=== PATIENT | female | born 1990 | race Caucasian/White ===

== ENCOUNTER 2017-07-19 11:31 | Emergency (ER) | payer MEDICAID ==
[~2017-07-19] VITALS: Ht 172.7 cm; Wt 104.5 kg
[~2017-07-19 11:31] MED LIST: ONDA4TAB6 PO
[2017-07-19 11:33] VITALS: BP 130/68
[2017-07-19] MEDS ORDERED: doxycycline hyclate 100mg tablet.DR PO SCH (12:35)
[2017-07-19] MEDS ORDERED: BUPIVAcaine/PF 2.5mg/ml (0.25%) 10ml vial IJ ONE (12:35)
[2017-07-19] MEDS ORDERED: TETanus/Pertussis (Acell)/Diphther VAC/PF (Tdap-Adult) 0.5ml syringe IM ONE (12:45)
== END 2017-07-19 12:51 | disposition home or self-care (01) ==
LOC: ER 11:32
DX: S30.861A Insect bite (nonvenomous) of abdominal wall, initial encounter (principal); F41.9 Anxiety disorder, unspecified; Z79.899 Other long term (current) drug therapy; W57.XXXA Bitten or stung by nonvenomous insect and other nonvenomous arthropods, initial encounter; Y93.89 Activity, other specified; Y92.89 Other specified places as the place of occurrence of the external cause; Y99.8 Other external cause status
CPT/HCPCS: 10120; 99284; J3490

== ENCOUNTER 2019-12-03 10:55 | Emergency (ER) | payer MEDICAID ==
[~2019-12-03] VITALS: Ht 175.3 cm; Wt 131.0 kg
[2019-12-03 12:24] LABS: URINE HCG POSITIVE (NEG)
[2019-12-03 12:27] LABS: CLARITY,URINE SLIGHTLY CLOUDY (Clear); COLOR,URINE YELLOW (Yellow); GLUCOSE, URINE NEGATIVE (Neg); KETONES,URINE NEGATIVE (Neg); LEUKOCYTE ESTERASE ,URINE NEGATIVE (Neg); NITRITES, URINE NEGATIVE (Neg); OCCULT BLOOD,URINE SMALL (Neg); PH,URINE 7.5 (4.8-8.0); PROTEIN,URINE NEGATIVE (Neg)
[2019-12-03 12:29] LABS: URINE AMPHETAMINE SCREEN NEGATIVE (Neg); URINE BARBITUATE SCREEN NEGATIVE (Neg); URINE BENZODIAZEPINES SCREEN POSITIVE (Neg); URINE CANNABINOID SCREEN POSITIVE (Neg); URINE COCAINE SCREEN NEGATIVE (Neg); URINE METHADONE SCREEN NEGATIVE (Neg); URINE OPIATE SCREEN POSITIVE (Neg); URINE PHENCYCLIDINE SCREEN NEGATIVE (Neg)
[2019-12-03 12:37] LABS: UA COLLECTION TYPE CLN CATCH MIDSTREAM
[2019-12-03 12:38] LABS: WBC,URINE 0-4 /HPF (0-4)
[2019-12-03 12:39] LABS: AMORPHOUS PHOSPHATES 2+; BACTERIA,URINE FEW /HPF (Neg); MUCUS STRANDS NONE SEEN /LPF (Neg); SQUAMOUS EPITHELIAL CELL,UR MODERATE /LPF (FEW)
[2019-12-03 12:44] LABS: BASOPHILS # (AUTO) 0.1 X10'3 (0-0.2); BASOPHILS % (AUTO) 0.5 % (0-1); EOSINOPHILS % (AUTO) 0.1 % (0-6); HEMATOCRIT 35.7 % (35.0-45.0); HEMOGLOBIN 11.7 g/dl (12.0-16.0); LYMPHOCYTES # (AUTO) 2.7 X10'3 (1.1-4.8); LYMPHOCYTES % (AUTO) 16.3 % (21-51); MEAN CORPUSCULAR HEMOGLOBIN 28.8 PG (27.0-31.0); MEAN CORPUSCULAR HGB CONC 32.8 g/dL (33.0-36.5); MEAN CORPUSCULAR VOLUME 87.8 FL (78-98); MEAN PLATELET VOLUME 9.5 FL (7.4-10.4); MONOCYTES # (AUTO) 0.7 X10'3 (0-0.9); MONOCYTES % (AUTO) 4.6 % (2-12); NEUTROPHILS # (AUTO) 12.9 X10'3 (1.8-7.7); NEUTROPHILS % (AUTO) 78.5 % (42-75); PLATELET COUNT 317 X10'3 (140-440); RED BLOOD COUNT 4.06 X10'6 (4.20-5.60); RED CELL DISTRIBUTION WIDTH 15.1 % (11.5-14.5); WHITE BLOOD COUNT 16.5 X10'3 (4.5-11.0)
[2019-12-03 12:51] LABS: ALANINE AMINOTRANSFERASE 25 U/L (12-78); ALBUMIN 3.4 G/DL (3.4-5.0); ALBUMIN/GLOBULIN RATIO 0.9 (1.1-1.5); ALKALINE PHOSPHATASE 58 IU/L (46-116); ANION GAP 8 (8-16); ASPARTATE AMINO TRANSFERASE 21 U/L (10-37); BILIRUBIN,TOTAL 0.3 MG/DL (0.1-1.0); BLOOD UREA NITROGEN 11 MG/DL (7-18); BUN/CREATININE RATIO 15.1 (6.6-38.0); CALCIUM 9.2 MG/DL (8.5-10.1); CHLORIDE 106 MMOL/L (99-107); CREATININE 0.73 MG/DL (0.40-0.90); GLUCOSE 90 MG/DL (70-104); POTASSIUM 3.7 MMOL/L (3.5-5.1); SODIUM 140 MMOL/L (135-145); TOTAL CARBON DIOXIDE 26.3 MMOL/L (24-32); TOTAL PROTEIN 7.3 G/DL (6.4-8.2); eGFR > 90 ML/MIN
[2019-12-03 13:19] LABS: ETHANOL < 0.010 GM/DL (0.0-0.010)
[2019-12-03] MEDS ORDERED: LORazepam 1 MG tablet PO ONE ×2 (13:25→16:55)
--- NOTE | 2019-12-03 14:07 | NUR ---
TOOK PT TO RESTROOM, MOTHER AT BEDSIDE, PT GIVEN ATIVAN
--- NOTE | 2019-12-03 17:19 | NUR ---
pt moved to overflow, alie resendiz will be giving report to rn assuming care
[2019-12-03] MEDS ORDERED: acetaminophen 325mg tablet PO ONE (17:50)
[2019-12-03] MEDS ORDERED: OLANZapine 2.5MG tablet PO STA (19:13)
[2019-12-03] MEDS ORDERED: olanzapine 10mg tablet PO STA (19:16)
--- NOTE | 2019-12-03 19:42 | NUR ---
One to one with the patient to assess severity of depressive symptoms and self harm risk. The patient is very angry because she was placed on a hold and is waiting placement in the ER. Verbalizes anger at her mother and at staff in the ER. She was given options to help decrease her anxiety but with each suggestion she was help rejecting. She demanded to be "knocked out" with medication. She is quite agiated and orders received from provider. The patient was given zyprexa and she was educated to type and use of medication. She is angry that she does not have a protien shake because she stated she was not able to eat her dinner and stated, "I'm going to tell everyone I know not to come here" She is rude and condescending to staff and generally angry with being here. At multible times states "I'm pissed" and is frustrated that she feels she has no control over what is happening. Will continue to try and encourage the patient to try and relax. She was given a warm blanket and her light was turned off. She stated that she has been off her psychiatric medications and when asked what medications she has been on she replied, "I can't name all of them. I've been on a lot"
--- NOTE | 2019-12-03 21:16 | NUR ---
The patient appears to be sleeping at this time.
--- NOTE | 2019-12-03 23:33 | NUR ---
The patient appears to be sleeping.
--- NOTE | 2019-12-04 02:03 | NUR ---
The patient appears to be sleeping
--- NOTE | 2019-12-04 03:05 | NUR ---
The patient appears to be sleeping
--- NOTE | 2019-12-04 04:14 | NUR ---
The patient appears to be asleeping.
[2019-12-04 06:29] VITALS: BP 146/83
--- NOTE | 2019-12-04 06:45 | NUR ---
PT TEARFUL REQUESTING BREAKFAST. INFORMED HER BREAKFAST WILL BE HERE AROUND [phone]. PT BECAME UP SET STATING SHE HAS NOT HAD ANY THING TO EAT SINCE SUNDAY. PT REQUESTING YOGART. YOGART GIVEN TO PT BY TECH
--- NOTE | 2019-12-04 08:56 | NUR ---
PT CONTINUES RESTING ON BACK RR EQUAL AND UNLABORED.BREAKFAST TRAY AT BS
--- NOTE | 2019-12-04 09:35 | NUR ---
pt ambulated to bathroom no distress noted.
--- NOTE | 2019-12-04 10:50 | NUR ---
CALL FROM LUIS CARLOS AT [facility] FOR NURSE TO NURSE REPORT. ALL QUESTIONS ANSWERED. LUIS CARLOS STATES SHE WILL REVIEW WITH THE DR AND NOTIFY THE [facility] OFFICE
--- NOTE | 2019-12-04 12:16 | NUR ---
Breaking primary RN. Pt sleeping on back. Respirations unlabored. NAD
--- NOTE | 2019-12-04 12:51 | NUR ---
Pt at nurse's station using the phone to call her mom.
--- NOTE | 2019-12-04 13:08 | NUR ---
PT GIVEN LUNCH TRAY WITH EXTRA BANANA AND YOGURT PT STATES SHE HAS NOT BEEN ABLE TO KEEP SOLID FOOD DOWN SINCE SUNDAY.
--- NOTE | 2019-12-04 14:10 | NUR ---
sat at bs with pt and just listened. pt voiced that she was scared and has never been through anything like this before. reassurance given to pt. pt states it helped just having someone to talk to. Informed pt that [facility] was not like being here in of. explained they are able to walk around, shae have group consuling, and she will have multiple opratunities to talk to people. pt states she was feeling better after talking
== END 2019-12-04 14:20 ==
LOC: ER 10:55
DX: R45.851 Suicidal ideations (principal); F31.9 Bipolar disorder, unspecified; F41.9 Anxiety disorder, unspecified; F43.10 Post-traumatic stress disorder, unspecified; F17.200 Nicotine dependence, unspecified, uncomplicated; Z79.899 Other long term (current) drug therapy
CPT/HCPCS: 36415; 80053; 80305; 80320; 81001; 81025; 84702; 85025; 99285